=== PATIENT | male | born 1995 | race Two or more races ===

== ENCOUNTER 2019-05-26 10:58 | Emergency (ER) | payer SELFPAY ==
[~2019-05-26] VITALS: Ht 175.3 cm; Wt 99.8 kg
[2019-05-26 11:14] VITALS: BP 156/93
[2019-05-26] MEDS ORDERED: KETOROLAC TROMETH 60MG/2ML VIAL IM ONE (11:45)
[2019-05-26] MEDS ORDERED: HYDROcodone-ACET 10/325MG TAB PO ONE (11:45)
== END 2019-05-26 12:32 | disposition home or self-care (01) ==
LOC: ER 10:58
DX: S43.102A Unspecified dislocation of left acromioclavicular joint, initial encounter (principal); S50.311A Abrasion of right elbow, initial encounter; X58.XXXA Exposure to other specified factors, initial encounter; Y93.89 Activity, other specified; Y99.8 Other external cause status; Y92.89 Other specified places as the place of occurrence of the external cause
CPT/HCPCS: 73030; 96372; 99283; J1885